=== PATIENT | male | born 1985 | race Caucasian/White ===

== ENCOUNTER 2022-02-19 03:29 | Emergency (ER) | payer SELFPAY ==
[~2022-02-19] VITALS: Ht 167.6 cm; Wt 59.0 kg
--- NOTE | 2022-02-19 03:29 | NUR ---
CLARENCE GUERRA, PRE-BOOK. TAKEN TO CHAIR
[2022-02-19 03:30] VITALS: BP 124/80
[2022-02-19] MEDS ORDERED: CEPH-588 PO (03:55)
[2022-02-19 04:05] VITALS: BP 124/80
--- NOTE | 2022-02-19 04:05 | NUR ---
Patient discharged with v/s stable. Written and verbal after care instructions given and explained. Patient verbalized understanding. Police with in custody. All questions addressed prior to discharge. Advised to follow up with PMD.
--- NOTE | 2022-02-19 04:05 | NUR ---
PATIENT BIB [place] [employer]. PATIENT EXAMINED BY DR. SHAFER. PATIENT MEDICALLY CLEARED AND RELEASED IN CUSTODY IN STABLE CONDITION. ORIGINAL PRE-BOOK FORM GIVEN TO OFFICER [facility], #[id number]. RX OF KEFLEX GIVEN
== END 2022-02-19 04:05 ==
LOC: MED 03:29
DX: S60.022A Contusion of left index finger without damage to nail, initial encounter (principal); X58.XXXA Exposure to other specified factors, initial encounter; Y93.89 Activity, other specified; Y92.89 Other specified places as the place of occurrence of the external cause; Y99.8 Other external cause status
CPT/HCPCS: 73140; 99283; Q0092